=== PATIENT | female | born 1955 | race Caucasian/White ===

== ENCOUNTER 2023-04-17 13:05 | Emergency (ER) | payer OTHER, SELFPAY ==
--- NOTE | ~2023-04-17 | XR_ITS ---
XR finger 1st LT min 2V 04/17/2023 13:42 Indication: Left first finger pain after fall Procedure: 3 views left first finger Comparison: No prior studies for comparison. Findings: There is a comminuted intra-articular fracture with mild displacement involving the proxima l aspect of the first proximal phalanx. There is a mildly displaced oblique intra-articular fracture base of the first distal phalanx. Mild soft tissue swelling. There is degenerative change of the firs t carpometacarpal and triscaphe joints. Impression: 1: Mildly displaced intra-articular fractures of proximal aspect of the left first proximal and dista l phalanges. Reviewed, dictated and finalized at location A. Impression: 1: Mildly displaced intra-articular fractures of proximal aspect of the left fi rst proximal and distal phalanges.
[2023-04-17 13:28] VITALS: BP 170/107; PULSE 102; RESP 16; TEMP 37.2; O2SAT 97
--- NOTE | 2023-04-17 14:21 | ED.UPPEXIN ---
HPI - Extremity Injury (Upper) General Chief Complaint: Extremity Injury, Upper Stated Complaint: lt thumb swollen Time Seen by Provider: 04/17/23 14:22 Source: patient, RN notes reviewed and old records reviewed Mode of arrival: ambulatory Limitations: no limitations History of Present Illness HPI narrative: 67 year old female who presents to [facility] care with complaints of falling at home last evening and hit her thumb with complaints of pain and swelling to mainly proximal aspect of her left thumb. Patient reports that she has applied ice intermittently to her thumb but has not taken any OTC medications for her discomfort. Patient has essential tremors and takes primidone daily for the tremors.Patient has moderate swelling to her left thumb with bruising noted especially proximal aspect of thumb, patient voices no tingling or numbness to her thumb, nail bed blanches briskly, strong left radial pulse. MD complaint: injury to: left and finger (thumb) Onset (ago): day(s) (occurred last evenig.) Other injuries: none Place: home Severity scale (1-10): 10 Treatments prior to arrival: cold therapy Related Data Home Medications Medication Instructions Recorded Confirmed albuterol sulfate 90 mcg/actuation inhalation 04/17/23 aerosol inhaler alprazolam 0.25 mg tablet mg 04/17/23 metoprolol succinate 25 mg mg PO 04/17/23 tablet,extended release 24 hr primidone 50 mg tablet mg 04/17/23 Allergies Allergy/AdvReac Type Severity Reaction Status Date / Time No Known Allergies Allergy Unverified 12/20/18 10:34 Review of Systems Review of Systems: CONSTITUTIONAL: Denies fever, chills, or sweats. EYES: Denies visual changes, redness, or discharge. ENT: Denies rhinorrhea, congestion, sore throat, or otalgia. CARDIOVASCULAR: Denies chest pain, palpitations, or edema. RESPIRATORY: Denies cough or dyspnea. GASTROINTESTINAL: Denies abdominal pain, nausea, vomiting, or diarrhea. GENITOURINARY: Denies dysuria or hematuria. SKIN: Denies rash or itching. MUSCULOSKELETAL: Denies back pain,positive for left thumb pain and swelling due to injury, or myalgia. NEUROLOGIC: Denies headache, numbness, or weakness,.has essential tremors PSYCHIATRIC: reports history of anxiety or depression. All systems reviewed & are unremarkable except as noted in HPI and below PMFSH Past Medical History Medical History (Updated 04/19/23 @ 11:46 by Carmen Francis NP) Anxiety Essential tremor Fracture of right foot History of sinus problem Surgical History Surgical History (Updated 04/19/23 @ 11:45 by Carmen Francis NP) History of endometrial ablation History of tubal ligation Status post insertion of breast implant Family History Family History (Updated 01/24/16 @ 23:19 by DOCTOR UNKNOWN) Father Malignant neoplasm of prostate Sibling Family history of malignant neoplasm of breast in first degree relative Social History Social History (Updated 04/19/23 @ 11:40 by Carmen Francis NP) Smoking packs per day: 1 Smoking cigarettes per day: 20.0 Years smoked: 31 Smoking pack-years: 31.00 Smoking status: Current every day smoker Alcohol intake: current Alcohol use details: occasional wine Substance use type: does not use Gender identity (if verbalized by the patient): Female Comments At time of signature, agree with nursing past medical, surgical, social and family history. There is no relevant family history pertinent to the presenting complaint Exam Narrative: GENERAL: Well-appearing, well-nourished, and in some acute distress related to pain of left thumb HEAD: Normocephalic, atraumatic. EYES: PERRLA and EOMI. ENT: Nares clear, no rhinorrhea or epistaxis. Mucous membranes moist.TM's normal throat pink with no lesions or swelling NECK: Supple.no lymphadenopathy CHEST: Clear to auscultation. No respiratory distress.SAO2 97% on room air HEART: Regular rate and rhythm. No murmur heard. Normal periphe
[2023-04-17 15:00] VITALS: BP 165/102
== END 2023-04-17 15:32 | disposition home or self-care (01) ==
PROVIDERS: Emergency Provider Registered Nurse; PCP Internal Medicine Infectious Disease
DX: S62.512A Displaced fracture of proximal phalanx of left thumb, initial encounter for closed fracture (principal); W19.XXXA Unspecified fall, initial encounter; F17.210 Nicotine dependence, cigarettes, uncomplicated
CPT/HCPCS: 29125; 73140; 99214; A4565; G0463

== ENCOUNTER 2023-06-03 10:31 | Emergency (ER) | payer OTHER, SELFPAY ==
--- NOTE | ~2023-06-03 | XR_ITS ---
XR shoulder LT min 2V 06/03/2023 11:13 Indication: Status post fall. Shoulder pain. Procedure: 4 views left shoulder Comparison: No prior studies for comparison. Findings: There is a displaced fracture distal aspect of the left clavicle. 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 Humerus is intact. Impression: 1: Mildly displaced distal left clavicular fracture. Reviewed, dictated and finalized at location L. [facility]CE[facility] Impression: 1: Mildly displaced distal left clavicular fracture.
[2023-06-03 10:38] VITALS: BP 142/86; PULSE 112; RESP 20; TEMP 36.9; O2SAT 95
--- NOTE | 2023-06-03 10:45 | ED.FALL ---
HPI - Fall General Chief Complaint: Extremity Injury, Upper Stated Complaint: Left side fall Source: patient and RN notes reviewed Mode of arrival: ambulatory Limitations: no limitations History of Present Illness HPI Narrative: Patient is a 67-year-old female who presents to the [facility] with complaints of left shoulder injury. Patient states that she lost her footing and fell down her wooden basement stairs. She states that she hit her left shoulder on the stairs. She also presents with an abrasion to her left eyebrow. She denies loss of consciousness. Denies neck or back pain. She reports decreased range of motion of the shoulder. There is significant bruising and swelling noted to the left shoulder. She is neurovascularly intact distally. She denies numbness. Patient presents to the [facility] with left hand/ wrist splint and place. She reports recent history of left thumb fracture. States that her orthopedist is Dr. Green. Related Data Home Medications Medication Instructions Recorded Confirmed albuterol sulfate 90 mcg/actuation inhalation 04/17/23 aerosol inhaler alprazolam 0.25 mg tablet mg 04/17/23 metoprolol succinate 25 mg mg PO 04/17/23 tablet,extended release 24 hr primidone 50 mg tablet mg 04/17/23 Allergies Allergy/AdvReac Type Severity Reaction Status Date / Time No Known Allergies Allergy Unverified 12/20/18 10:34 Review of Systems Review of Systems: CONSTITUTIONAL: Denies fever, chills, or sweats. EYES: Denies visual changes, redness, or discharge. ENT: Denies otalgia and sore throat CARDIOVASCULAR: Denies chest pain, palpitations, or edema. RESPIRATORY: Denies cough or dyspnea. GASTROINTESTINAL: Denies abdominal pain, nausea, vomiting, or diarrhea. GENITOURINARY: Denies dysuria or hematuria. SKIN: Denies rash or itching. MUSCULOSKELETAL: Denies back pain or myalgia. Reports left shoulder injury. NEUROLOGIC: Denies headache, numbness, or weakness. Pertinent positives per HPI. [facility] Past Medical History Medical History Anxiety Essential tremor Fracture of right foot History of sinus problem Surgical History Surgical History History of endometrial ablation History of tubal ligation Status post insertion of breast implant Family History Family History Father Malignant neoplasm of prostate Sibling Family history of malignant neoplasm of breast in first degree relative Social History Social History Smoking packs per day: 1 Smoking cigarettes per day: 20.0 Years smoked: 31 Smoking pack-years: 31.00 Smoking status: Current every day smoker Alcohol intake: current Alcohol use details: occasional wine Substance use type: does not use Gender identity (if verbalized by the patient): Female Comments At the time of my signature, I reviewed and agree with the nursing past medical, surgical, social, and family history. There is no relevant family history pertinent to the patient complaint. Exam Narrative: GENERAL: This is a well-nourished, well-developed patient, in no apparent distress. HEAD: normocephalic, atraumatic. EYES: PERRL. Sclera clear/white. Vision is grossly intact. EARS: External ears normal, auditory canals clear and without drainage, TMs normal without perforation. Hearing grossly intact. NOSE: External nose normal with no obvious nasal discharge, nares without redness, no rhinorrhea. THROAT: Mucous membranes moist, posterior pharynx clear. NECK: Neck supple, non-tender without lymphadenopathy, masses or thyromegaly. CARDIOVASCULAR: Regular rate and rhythm without murmurs, gallops, or rubs. RESPIRATORY: Clear to auscultation. Breath sounds equal bilaterally. No wheezes, rales, or rhonchi. GASTROINTESTINAL
== END 2023-06-03 11:58 | disposition home or self-care (01) ==
PROVIDERS: Emergency Provider Nurse Practitioner; PCP Internal Medicine Infectious Disease
DX: S42.032A Displaced fracture of lateral end of left clavicle, initial encounter for closed fracture (principal); W10.9XXA Fall (on) (from) unspecified stairs and steps, initial encounter; F17.210 Nicotine dependence, cigarettes, uncomplicated
CPT/HCPCS: 73030; 99214; G0463